=== PATIENT | female | born 1965 | race Caucasian/White ===

== ENCOUNTER 2021-10-12 06:01 | Emergency (ER) | payer OTHER ==
[~2021-10-12] VITALS: Ht 152.4 cm; Wt 65.8 kg
--- NOTE | 2021-10-12 06:10 | NUR ---
BIBSELF C/O COUGH X3 WEEKS. TOLERATING R/A AT 99%. PT A/OX4. CONNECTED PT TO POX AND MONITOR. SAFETY MEASURES IN PLACE.
--- NOTE | 2021-10-12 06:21 | NUR ---
DR. OKSANA DANIELS AT PT'S BEDSIDE
[2021-10-12] MEDS ORDERED: predniSONE 20 MG TABLET ONE (06:28)
[2021-10-12] MEDS ORDERED: IPRATROPIUM NEB FS 0.5 MG/2.5 ML AMPUL.NEB ONE (06:29)
[2021-10-12] MEDS ORDERED: ALBUTEROL FS 2.5 MG/3 ML VIAL.NEB ONE (06:29)
[2021-10-12] MEDS ORDERED: predniSONE 20 MG TABLET PO ONE (06:30)
[2021-10-12] MEDS ORDERED: ALBUTEROL FS 2.5 MG/3 ML VIAL.NEB NEB ONE (06:30)
[2021-10-12] MEDS ORDERED: IPRATROPIUM NEB FS 0.5 MG/2.5 ML AMPUL.NEB NEB ONE (06:30)
--- NOTE | 2021-10-12 06:32 | NUR ---
[facility] CONSULTANT AT PT'S BEDSIDE
--- NOTE | 2021-10-12 06:32 | NUR ---
RT AT PT'S BEDSIDE FOR BREATHING TX
--- NOTE | 2021-10-12 07:01 | NUR ---
PT STATES HAS RELIEF & CAN BREATH MORE EASILY S/P BREATHING TX. COUGHING STILL NOTED. SATTING 95% ON R/A
[2021-10-12] MEDS ORDERED: AZIT250T PO (07:07)
[2021-10-12] MEDS ORDERED: ALBU8.5H8 INH (07:07)
[2021-10-12] MEDS ORDERED: PRED50TA PO (07:07)
--- NOTE | 2021-10-12 07:35 | NUR ---
Patient discharged to home in stable condition. Written and verbal after care instructions given. Patient verbalizes understanding of instruction.
[2021-10-12 07:37] VITALS: BP 128/82
== END 2021-10-12 07:40 | disposition home or self-care (01) ==
LOC: ER 06:05
DX: J45.909 Unspecified asthma, uncomplicated (principal); F17.200 Nicotine dependence, unspecified, uncomplicated
CPT/HCPCS: 99285; 71045; 99406; 94640; J7512